=== PATIENT | male | born 1990 | race Caucasian/White ===

== ENCOUNTER 2022-10-27 21:00 | Emergency (ER) | payer BC ==
[2022-10-27 21:36] LABS: BASOPHILS ABSOLUTE AUTO 0.04 K/uL (0.00-0.20); BASOPHILS PERCENT AUTO 0.3 % (0.0-2.0); EOSINOPHILS ABSOLUTE AUTO 0.33 K/uL (0.00-0.50); EOSINOPHILS PERCENT AUTO 2.3 % (0.0-5.0); HEMATOCRIT 44.4 % (39.0-49.0); HEMOGLOBIN 15.3 g/dL (13.1-16.8); LYMPHOCYTES ABSOLUTE AUTO 3.56 K/uL (0.50-3.50); MEAN CORPUSCULAR HEMOGLOBIN 28.9 pg (28.2-33.3); MEAN CORPUSCULAR HGB CONC 34.5 g/dL (31.7-36.0); MEAN CORPUSCULAR VOLUME 83.9 fL (84.0-98.0); MONOCYTES ABSOLUTE AUTO 1.52 K/uL (0.00-1.00); MONOCYTES PERCENT AUTO 10.7 % (2.0-14.0); NEUTROPHILS ABSOLUTE AUTO 8.78 K/uL (1.40-7.00); NEUTROPHILS PERCENT AUTO 61.7 % (45.0-80.0); PLATELET COUNT,PLT 274 K/uL (150-350); RED BLOOD CELL COUNT 5.29 M/uL (4.33-5.41); RED CELL DISTRIBUTION WIDTH 13.1 % (11.2-14.1); WHITE BLOOD CELL COUNT,WBC 14.2 K/uL (4.0-10.2)
[2022-10-27] MEDS ORDERED: Lidocaine 1% 5 ML VIAL INJECT ONE (22:00)
[2022-10-27] MEDS ORDERED: cefTRIAXone 1 GM Vial IM ONE (22:00)
[2022-10-27] MEDS ORDERED: Ketorolac 30 MG/ML SDV IM ONE (22:01)
[2022-10-27] MEDS ORDERED: Ondansetron 4 MG Tab.DIS PO ONE (22:01)
[2022-10-27] MEDS ORDERED: Acetaminophen/oxyCODONE 325-5 MG Tab PO ONE (22:05)
[2022-10-27] MEDS ORDERED: Take Home: Amoxicillin 500 MG, 6 Cap Pack PO ONE ×2 (22:06→22:10)
[2022-10-27] MEDS ORDERED: Amoxicillin 250 MG Cap PO ONE (22:08)
[2022-10-27] MEDS ORDERED: Take Home: oxyCODONE HCl 5 MG Tab, 5 Tab Pack PO ONE (22:11)
[2022-10-27] MEDS ORDERED: Take Home: Cefuroxime 500 MG Tab, 6 Tab Pack ONE (22:30)
[2022-10-28] MEDS ORDERED: Take Home: Cefuroxime 500 MG Tab, 6 Tab Pack PO SCH (18:00)
== END 2022-10-27 23:24 | disposition home or self-care (01) ==
LOC: LL.ED 21:00
DX: K04.7 Periapical abscess without sinus (principal); F17.210 Nicotine dependence, cigarettes, uncomplicated; Z88.1 Allergy status to other antibiotic agents; Z88.2 Allergy status to sulfonamides
CPT/HCPCS: 36415; 85025; 96372; 99283; A9270-GY; J0696; J1885; J3490